=== PATIENT | female | born 1985 | race Caucasian/White ===

== ENCOUNTER 2018-09-06 23:14 | Emergency (ER) | payer OTHER ==
--- NOTE | 2018-09-06 23:35 | EDPHY ---
H & P Time Seen by Provider: 09/06/18 23:22 HPI/ROS: CHIEF COMPLAINT: "I am constipated" HISTORY OF PRESENT ILLNESS: 33-year-old female history bulimia, chronic, recurrent constipation, in the ER complaining of constipation. She has taken wuce-pny-fjriunn laxative and attempted to place an enema but was unable to push any fluid into her rectum. No pain with defecation. Intermittent abdominal cramping present. No nausea or vomiting. No fever or chills. No back pain. No lower extremity radiculopathy. No saddle anesthesia. No urinary abnormality, no urinary retention or incontinence. REVIEW OF SYSTEMS: 10 systems reviewed and negative with the exception of the elements mentioned in the history of present illness PAST MEDICAL & SURGICAL HISTORY: Bulimia SOCIAL HISTORY:Nonsmoker PHYSICAL EXAM (Prior to examination, patient consented to physical exam, hands were washed and my usual and customary physical exam procedures followed) 1) GENERAL: Well-developed, well-nourished, alert and oriented. Appears nontoxic. 2) HEAD: Normocephalic, atraumatic 3) HEENT: Pupils equal, round, reactive to light bilaterally. Sclera anicteric. 4) NECK: Full range of motion, no meningeal signs. 5) LUNGS: Clear auscultation bilaterally, no wheezes, no rhonchi, no retractions. 6) HEART: Regular rate and rhythm, no murmur, no heave, no gallop. 7) ABDOMEN: No guarding, no rebound, no focal tenderness, negative McBurney's, negative Jurado's, negative Rovsing's, negative peritoneal sign, unable to elicit any abdominal pain 8) MUSCULOSKELETAL: Moving all extremities, no focal areas of tenderness, no obvious trauma. No peripheral edema or discoloration. Patella and Achilles reflexes are intact to bilateral strength 5/5. 9) BACK: No CVA tenderness, no midline vertebral tenderness, no fluctuance, no step-off, no obvious trauma, no visual or palpable abnormality. 10) SKIN: No rash, no petechiae. 11) rectal (with female operations and maintenance technician Lily at bedside): Normal rectal tone. Claylike Stool in the rectal vault noted. DIFFERENTIAL DIAGNOSIS: In no particular order include but limited to constipation, cauda equina, obstipation, bowel obstruction Smoking Status: Never smoked Constitutional: Initial Vital Signs Temperature (C) 36.8 C 09/06/18 23:16 Heart Rate 90 09/06/18 23:16 Respiratory Rate 20 09/06/18 23:16 Blood Pressure 140/86 H 09/06/18 23:16 O2 Sat (%) 97 09/06/18 23:16 O2 Delivery Mode Room Air Allergies/Adverse Reactions: escitalopram [From Lexapro] Allergy (Verified 09/06/18 23:20) Home Medications: Medication Instructions Recorded Adderall 10 MG (*) 09/06/18 Peg 3350/Na Sulf,Bicarb,Cl/KCl 1,000 ml PO ONCE #4000 ml 09/06/18 [Golytely (RX)] MDM/Departure - MDM Procedures: Procedure: Manual disimpaction of feces Indication: Constipation, stool in rectal vault With female operations and maintenance technician Lily at bedside, and after patient provided verbal consent, I manually disimpacted approximately baseball size amount of claylike stool. Patient tolerated procedure well ED Course/Re-evaluation: 12:05 a.m.: Castile soap enema placed by nursing staff. Re-evaluation by myself at this time. Patient has had multiple bowel movements in the ER. She is feeling significant improvement. She would like to be discharged. She would like to continue having bowel movements at home. She will be discharged with my usual and customary GI precautions instructions. She feels comfortable being discharged. Doubt acute surgical abdominal pathology. Care of patient under supervision of secondary supervising physician Dr Joaquin Iraheta with whom I discussed case. - Depart Disposition: Home, Routine, Self-Care Clinical Impression: Constipation Qualifiers: Constipation type: unspecified constipation type Qualified Code(s): K59.00 - Constipation, unspecified Condition: Good Instructions: Polyethylene Glycol 3350/Electrolytes (By mouth), Constipation ( ED), Ondansetron (By mouth) Additional Instructions: Return to the ER if you develop abdominal pain, vomiting, back pain, leg pain, urinary abnormality, or any other symptoms that concern you. Prescriptions: Peg 3350/Na Sulf,Bicarb,Cl/KCl [Golytely (RX)] 1,000 ml PO ONCE #4000 ml Referrals: Gt Mooney MD [Medical Doctor] - 3-4 days, if not improved
[2018-09-07] MEDS ORDERED: ONDANSETRON 4MG PREPACK#2 BTL TAKEHOME ONE (00:49)
[2018-09-07] MEDS ORDERED: ONDANSETRON DISINTEGRATING 4 MG TAB PO ONE (00:49)
[2018-09-07 01:06] VITALS: BP 129/79
== END 2018-09-07 01:28 | disposition home or self-care (01) ==
DX: K59.00 Constipation, unspecified (principal); F50.2 Bulimia nervosa